=== PATIENT | female | born 1960 | race Caucasian/White ===

== ENCOUNTER → 2017-02-14 | Outpatient (CLI) | payer BC, OTHER ==
[~2017-02-14] VITALS: Ht 160 cm; Wt 72.3 kg
[~2017-02-14] MED LIST: BIOIDENTICAL; CYCLOBENZAPRINE10 MG PO; CYTOMEL 25 MCG25 MCG PO; HYDROCODONE-AP1 EA11 PO; LEVOTHYROXINE0.05 MG PO; MINOCYCLINE HC100 M2 PO; NORETHINDRONE AC5 M1 PO; ROXICODONE5 MG PO; SPIRONOLACTONE50 MG PO; THYROID MED
--- NOTE | ~2017-02-14 | HPC ---
[facility] [address] [address] PAIN MANAGEMENT CONSULTATION Name: JESU BRICEÑO Room #: [facility].#: [id number] Admission: 02/14/17 Attend Phys: Reji Harper DO Discharge: Date of : 62 Report #: [id number] THIS REPORT FOR: //name// CC: Shi Harper DATE OF SERVICE: 02/14/2017 REFERRING PHYSICIAN: Shi Crain MD CHIEF COMPLAINT: Coccydynia. HISTORY OF PRESENT ILLNESS: As you know, the patient is a very pleasant 56-year-old female who returns today in followup visit with increasing coccyx pain. The patient is very concerned that she is going to be making a trip to the [facility] where she will be sitting in the vehicle for upwards of 9-10 hours during travel. She states that this typically exacerbates her symptoms. At present, she states her pain is located directly over the coccyx area, sitting exacerbate symptoms, injections tend to improve pain. Previous injection to address her coccydynia in the form of a ganglion impar block was very effective to reduce her pain down to 2/10. She returns today stating that she is concerned about changes in her coccyx area and wishes imaging studies. ALLERGIES: PENICILLIN AND MORPHINE. CURRENT MEDICATIONS: Bioidentical hormone, minocycline, norethindrone acetate, levothyroxine, and spironolactone. SOCIAL HISTORY: The patient denies tobacco use. Denies IV or illicit drug use. Admits to 1-2 alcoholic beverages per day. She is unaccompanied. IMAGING: No new imaging available. PHYSICAL EXAMINATION: VITAL SIGNS: Blood pressure 105/70, pulse 80, respiratory rate 16 and unlabored, the patient is 100% on room air, height 5 feet 3 inches tall, weight 159.4 pounds, and BMI calculated 28.2. GENERAL: Well-developed, well-nourished, well-hydrated 56-year-old female, appearing her stated age, she is placing current pain score 2/10. HEENT: Normocephalic, atraumatic. Pupils are equal, round, and reactive to light. Extraocular muscles are intact. EXTREMITIES: Show no clubbing, no cyanosis, and no edema. MUSCULOSKELETAL: The patient does have some tenderness again to palpation over the buttock area and directly over the coccyx and sacral junction. Deep palpation in the area causes intensification of pain. [place] [address] PAIN MANAGEMENT CONSULTATION Name: JESU BRICEÑO Room #: [facility]#: [id number] Admission: 02/14/17 Attend Phys: Reji Harper DO Discharge: Date of : 62 Report #: [id number] be any bony abnormalities. ASSESSMENT: 1. Coccydynia. 2. Chronic intractable pain. PLAN: 1. The patient returns today in followup visit with concerns of changes in the sacral and coccygeal area. Physical exam would indicate no changes noted and there does not appear to be any gross abnormalities. She is palpating what appears to be the spinous processes of the sacral area. She is also able to palpate the sacral hiatus, though these are normal findings. The patient and I did discuss the possibility of the coccyx being displaced further. I would recommend further imaging over just direct palpation and examination. 2. The patient will be sent for AP and lateral imaging of the sacral area, we will review the findings once available and discussed this with the patient in followup visit. 3. The patient and I did discuss that part of the symptoms that she is experiencing appear to be related to extremely tight hamstrings and their attachment points along the ischium. We would recommend that the patient begin physical therapy twice a week for at least 4 weeks with a concerted effort continuing this physical therapy after formalized sessions. This would be extremely helpful. The patient indicates that she cannot initiate this therapy until she returns from her [place] vacation 6 weeks from today. I recommend that she do follow up with physical therapy as soon as she returns assuming no injections are necessary. 4. The patient will be started on hydrocodone 7.5/325 one tab p.o. q. 8 hours p.r.n. for pain, I have given the patient #60 tablets, release dates of today, this will be helpful for pain control. 5. The patient was provided a prescription of cyclobenzaprine 10 mg dose 1 tab p.o. t.i.d., I have given the patient #60 tablets, advised to take the medication only as needed for muscle spasming, this will help release some of the spasming she is experiencing in the hamstrings. 6. Recommend light stretching exercises. We have provided the patient with handouts in regards to stretching exercises, she can also look things up on the web that would help alleviate some of her hamstring strain. This would be quite helpful in alleviating some of the pressure in the coccyx area. 7. The patient can contact our clinic by phone any time later today or first thing tomorrow to discuss the findings on x-ray imaging. By: [id number] Reji Harper, DO /nt
[2017-02-14 08:55] VITALS: BP 105/70
== END | disposition home or self-care (01) ==
LOC: PAIN 06:30
DX: M53.3 Sacrococcygeal disorders, not elsewhere classified (principal); G89.29 Other chronic pain